=== PATIENT | female | born 1960 | race Caucasian/White ===

== ENCOUNTER → 2024-01-23 10:57 | Outpatient (REF) | payer OTHER, SELFPAY | LOC: WDC 10:57 | PROVIDERS: ATTENDING PHYSICIAN Nurse Practitioner | DX: Z12.31 Encounter for screening mammogram for malignant neoplasm of breast (principal) | CPT/HCPCS: 77063; 77067 ==

== ENCOUNTER → 2025-01-28 09:11 | Outpatient (REF) | payer OTHER, SELFPAY | LOC: WDC 09:11 | PROVIDERS: ATTENDING PHYSICIAN Nurse Practitioner | DX: Z12.31 Encounter for screening mammogram for malignant neoplasm of breast (principal) | CPT/HCPCS: 77063; 77067 ==